=== PATIENT | female | born 1995 | race African-American/Black ===

== ENCOUNTER 2025-09-18 13:23 | Emergency (ER) | payer SELFPAY ==
[~2025-09-18] VITALS: Ht 167.6 cm; Wt 99.8 kg
[2025-09-18 14:00] VITALS: BP 145/82; TEMP 98.3
[2025-09-18] MEDS ORDERED: LIDOCAINE 1% INJ 50 ML MDV IJ ONE (14:19)
[2025-09-18] MEDS ORDERED: SULF1TAB48 PO (14:27)
[2025-09-18] MEDS ORDERED: CEPH-570 PO (14:27)
[2025-09-18] MEDS ORDERED: IBUPROFEN 600 MG TABLET ONE (14:36)
[2025-09-18] MEDS ORDERED: SULFAMETH/TRIMETH 800/160 MG 1 UDTAB TABLET ONE (14:36)
[2025-09-18] MEDS ORDERED: CEPHALEXIN MONOHYDRATE 500 MG CAPSULE PO ONE (14:36)
[2025-09-18] MEDS: SULFAMETH/TRIMETH 800/160 MG 1 UDTAB TABLET PO ONE (15:20)
[2025-09-18 15:21] VITALS: O2SAT 98
[2025-09-18] MEDS: IBUPROFEN 600 MG TABLET PO ONE (15:21)
[2025-09-18] MEDS: CEPHALEXIN MONOHYDRATE 500 MG CAPSULE PO ONE (15:21)
== END 2025-09-18 15:29 | disposition home or self-care (01) ==
LOC: ER 14:03
DX: L02.415 Cutaneous abscess of right lower limb (principal); L03.115 Cellulitis of right lower limb
CPT/HCPCS: 99284; 10060; J3490

== ENCOUNTER 2025-09-21 13:49 | Emergency (ER) | payer SELFPAY ==
[~2025-09-21] VITALS: Ht 167.6 cm; Wt 108.9 kg
[~2025-09-21 13:49] MED LIST: CEPH-570 PO; SULF1TAB48 PO
[2025-09-21 13:56] VITALS: BP 141/66; TEMP 98.3
[2025-09-21 14:24] VITALS: O2SAT 95
== END 2025-09-21 14:26 | disposition home or self-care (01) ==
LOC: ER 13:52
DX: L02.415 Cutaneous abscess of right lower limb (principal); Z91.048 Other nonmedicinal substance allergy status; Z60.2 Problems related to living alone